=== PATIENT | male | born 1925 | race Caucasian/White ===

== ENCOUNTER → 2017-06-11 | Outpatient (CLI) | payer OTHER, BC ==
[~2017-06-11] VITALS: Ht 180.3 cm; Wt 104.3 kg
[~2017-06-11] MED LIST: ASPIR 8181 MG PO; DIOVAN HCT 1601 EACH PO; LASIX 40 MG TAB40 M2 PO; MOBIC7.5 MG PO; NEXIUM20 MG PO; PROSCAR 5MG TABL5 MG PO
--- NOTE | ~2017-06-11 | P ---
[facility] [place] [address] PROCEDURE REPORT Name: ANGEL JIMENEZ [id number] Admission: 06/11/17 Attend Phys: Morgan Munroe Discharge: Date of : [birth year] Report #: [id number] THIS REPORT FOR: //name// CC: Morgan Kaplan MD DATE OF SERVICE: 06/11/2017 PROCEDURE PERFORMED: Colonoscopy with biopsies. HISTORY OF PRESENT ILLNESS: The patient is an 89-year-old male with intermittent bright red blood per rectum ongoing for the last 2 months. He states it can be a small amount mixed with the stool and with wiping. He does report some right groin pain, but this has not in general been associated with abdominal pain, no constipation or diarrhea. No family history of colon cancer. He does take aspirin. This has been held now over the last week. PROCEDURE: The risks and benefits of the procedure were explained to the patient, those risks including, but not limited to bleeding, perforation, and the risk of sedation. He understood these risks and gave informed consent. Sedation was given using propofol per anesthesia. Next, a digital rectal exam was initially performed, which was normal. Next, using a standard Bionymn colonoscope, the scope was placed in the patient's anus and advanced under direct vision to the cecum. The overall prep was excellent. The cecum and ileocecal valve were normal in appearance. The ascending colon was normal. In the transverse colon, a 4-mm sessile polyp was noted. This was removed with cold forceps, otherwise normal. In the descending colon, a 3-mm sessile polyp, also removed with cold forceps. Multiple diverticula were noted throughout the sigmoid colon, no evidence of inflammation or bleeding. Also, noted in the sigmoid colon, there was a submucosal lipoma of approximately 1 cm. The rectal mucosa was normal. On retroflexion, small to medium size nonbleeding internal hemorrhoids were noted. Close examination of the anal canal showed no evidence of anal fissure. Small old skin tags were noted on the outside. No evidence of bleeding. The scope was then withdrawn and the procedure terminated. The patient tolerated the procedure well. IMPRESSION: 1. Two small colonic polyps. 2. Sigmoid diverticulosis. 3. Internal hemorrhoids, suspect this likely source of bleeding. 4. Small external skin tags. RECOMMENDATIONS: 1. Await biopsy results. 2. Suspect intermittent bright red blood per rectum, it is likely due to [facility] [address] [place] [address] PROCEDURE REPORT Name: ANGEL JIMENEZ IVANHOE Room #: REG [facility].#: [id number] Admission: 06/11/17 Attend Phys: Morgan Munroe Discharge: Date of : [birth year] Report #: [id number] internal hemorrhoids. We would recommend high fiber diet and Analpram on a p.r.n. basis. Thank you for allowing me to participate in his care. By: [id number] Morgan Butler MD /nirmal
--- NOTE | ~2017-06-11 | S ---
[facility] [place] [address] SURGICAL PATH RPT PROCEDURE Name: ANGEL JIMENEZ Room #: REG [facility] Alessia..#: [id number] Admission: 06/11/17 Date of : [birth year] Discharge: Report #: [id number] Path Case #: [id number] PATHOLOGY REPORT COLLECTION DATE: 06/11/2017 RECEIVED DATE: 06/11/2017 SUBMITTING PHYS: Dr. Morgan Butler OTHER PHYS: Dr.Mark Kaplan SPECIMEN(S) RECEIVED: A.Transverse colon polyp B.Descending colon polyp * * * * * * * * * * * * FINAL DIAGNOSIS: A. "Transverse colon polyp," biopsy: - Tubular adenoma; no high-grade dysplasia. B. "Descending colon polyp," biopsy: - Tubular adenoma; no high-grade dysplasia. (CLW:; 06/12/2017) PATHOLOGIST: Elvia Alonzo M.D. REPORT ELECTRONICALLY SIGNED BY: Elvia Alonzo M.D. DATE/TIME: 06/12/2017 16:42 * * * * * * * * * * * * GROSS PATHOLOGY: A. The specimen is received in formalin, labeled "Angel Sesso and polyp at transverse colon", several randolph soft tissue the aggregate measures 0.6 x 0.2 x 0.1 cm, entirely submitted in A1. B. The specimen is received in formalin, labeled "Angel Sesso and polyp at descending colon", are several randolph soft tissue the aggregate measure 0.5 x 0.4 x 0.1 cm, entirely submitted in B1. (SWS; 06/11/2017) CLINICAL HISTORY: Rectal bleeding, colon polyps, diverticulosis, hemorrhoids INITIAL CPT CODE(S): A; 99244 B; 37746 Professional services performed by [facility] at [facility] [address] [place] [address] [facility] [address] [place] [address] SURGICAL PATH RPT PROCEDURE Name: BARBARAANGEL JOSIE Room #: REG [facility].#: [id number] Admission: 06/11/17 Date of : [birth year] Discharge: Report #: [id number] Path Case #: [id number] Technical services performed by [facility] at [address] [place] [address], [address] [address]. [place] [address] PHONE: [phone] DIRECTOR: Alphonso Olvera M.D. * * * END OF REPORT * * *
== END | disposition home or self-care (01) ==
LOC: GI 08:22
DX: D12.3 Benign neoplasm of transverse colon (principal); D12.4 Benign neoplasm of descending colon; K57.30 Diverticulosis of large intestine without perforation or abscess without bleeding; K64.8 Other hemorrhoids; K64.4 Residual hemorrhoidal skin tags; I10 Essential (primary) hypertension; J44.9 Chronic obstructive pulmonary disease, unspecified; K21.9 Gastro-esophageal reflux disease without esophagitis; M19.90 Unspecified osteoarthritis, unspecified site; Z85.828 Personal history of other malignant neoplasm of skin; Z87.891 Personal history of nicotine dependence; Z98.890 Other specified postprocedural states; Z87.19 Personal history of other diseases of the digestive system; Z79.82 Long term (current) use of aspirin; Z79.899 Other long term (current) drug therapy
CPT/HCPCS: 62110; 62900

== ENCOUNTER → 2017-06-23 | Outpatient (CLI) | payer OTHER, BC | LOC: CAT 11:50 | DX: K76.0 Fatty (change of) liver, not elsewhere classified (principal) ==